=== PATIENT | male | born 1970 | race Two or more races ===

== ENCOUNTER 2016-09-23 15:49 | Emergency (ER) | payer OTHER ==
[~2016-09-23] VITALS: Ht 188 cm; Wt 88.5 kg
[2016-09-23 16:04] VITALS: BP 145/83
[2016-09-23] MEDS ORDERED: NKM (16:08)
[2016-09-23] MEDS ORDERED: Lidocaine 1% MPF 10mg/ml 5ml ONE ×2 (17:25→17:27)
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
[2016-09-23] MEDS ORDERED: CEPHALEXIN500 MG ORAL (18:34)
[2016-09-23] MEDS ORDERED: ACETAMINOPHEN-1 EAC2 ORAL (18:34)
[2016-09-23 19:00] VITALS: BP 145/83
[2016-09-23] MEDS ORDERED: Tetanus/Diptheria/Pertussis Vaccine 0.5ml Syr IM ONE (19:00)
[2016-09-23] MEDS ORDERED: Lidocaine 1% MPF 10mg/ml 5ml INJ ONE (19:00)
--- NOTE | 2016-09-24 06:01 | Consultation ---
DATE OF CONSULTATION: 09/23/2016 REASON FOR CONSULTATION: Complex left hand laceration. HISTORY OF PRESENT ILLNESS: This is a 46-year-old male, who sustained a cut to his left hand while holding a sign outside of his work and, the sign fell onto his hand and he sustained a laceration to his pinky. He came in with profuse bleeding and inability to flex and extend his pinky secondary to pain. I was called to evaluate the patient for this injury. PAST MEDICAL HISTORY: None. PAST SURGICAL HISTORY: None. ALLERGIES: None. MEDICATIONS: Referred to the ER note. PHYSICAL EXAMINATION: GENERAL: The patient is alert and oriented. HEART: Regular rate and rhythm. ABDOMEN: Soft, nontender, and nondistended. EXTREMITIES: Examination of his right upper extremity reveals a deep laceration over the ulnar aspect of his small finger extending from the midportion of the PIP joint all the way from the volar surface up to the dorsal aspect of the finger. His neurosensory exam appears to be intact. Initially, the patient had difficulty with flexion, however, on further evaluation, it appears that both FDS and FDP are intact and extension is intact. ASSESSMENT AND PLAN: This is a 46-year-old male with a deep laceration to his right small finger. He will require exploration, debridement, and complex closure of this injury. Baltazar Alvarez M.D. DR: Milton JOB#: [id number] CC: SAMREEN
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
== END 2016-09-23 19:00 | disposition home or self-care (01) ==
LOC: EMR 18:36
DX: S61.216A Laceration without foreign body of right little finger without damage to nail, initial encounter (principal); Z23 Encounter for immunization; W26.0XXA Contact with knife, initial encounter; Y92.9 Unspecified place or not applicable; Y99.0 Civilian activity done for income or pay
CPT/HCPCS: 90471; 90715; 96372; 99283